=== PATIENT | female | born 1995 | race Caucasian/White ===

== ENCOUNTER 2024-04-25 19:10 | Emergency (ER) | payer MEDICAID ==
[~2024-04-25] VITALS: Ht 157.5 cm; Wt 77.1 kg
[2024-04-25 19:34] VITALS: TEMP 98.4
[2024-04-25] MEDS ORDERED: ALBUTEROL (0.5%) 2.5MG/0.5ML NEB HHN ONE (20:00)
[2024-04-25] MEDS: ALBUTEROL (0.5%) 2.5MG/0.5ML NEB HHN NR (22:55)
[2024-04-25 22:56] VITALS: PULSE 92; RESP 18; O2SAT 98
[2024-04-26 01:23] VITALS: BP 124/60; PULSE 82; RESP 20
== END 2024-04-26 01:24 | disposition home or self-care (01) ==
LOC: ER 19:10
DX: O99.512 Diseases of the respiratory system complicating pregnancy, second trimester (principal); J45.909 Unspecified asthma, uncomplicated; Z3A.20 20 weeks gestation of pregnancy; Z20.822 Contact with and (suspected) exposure to COVID-19
CPT/HCPCS: 87420; 87804 ×2; 71045; 94640; 99284; 87426; Z7610 ×3